=== PATIENT | male | born 1970 | race Hispanic/Latino ===

== ENCOUNTER → 2022-10-07 | Outpatient (CLI) | payer OTHER | END | disposition home or self-care (01) | LOC: SHCH 13:59 | PROVIDERS: ATTEND Internal Medicine Cardiovascular Disease | DX: I87.2 Venous insufficiency (chronic) (peripheral) (principal); I82.812 Embolism and thrombosis of superficial veins of left lower extremity; Z98.890 Other specified postprocedural states | CPT/HCPCS: 93971 ==